=== PATIENT | female | born 1955 | race Two or more races ===

== ENCOUNTER 2025-02-14 12:08 | Outpatient (CLI) | payer OTHER | END 2025-02-14 12:14 | disposition home or self-care (01) | LOC: SONOGRAMA 12:08 | PROVIDERS: ATTEND Internal Medicine Gastroenterology | DX: R10.13 Epigastric pain (principal); R11.0 Nausea; R93.3 Abnormal findings on diagnostic imaging of other parts of digestive tract; K52.9 Noninfective gastroenteritis and colitis, unspecified ==